=== PATIENT | female | born 1940 | race Caucasian/White ===

== ENCOUNTER → 2017-05-27 | Outpatient (CLI) | payer MEDICARE, OTHER | END | disposition home or self-care (01) | LOC: CFH 08:25 | PROVIDERS: ATTEND Family Medicine | DX: G93.9 Disorder of brain, unspecified (principal) | CPT/HCPCS: 70551 ==

== ENCOUNTER → 2017-06-19 | Outpatient (CLI) | payer MEDICARE, OTHER ==
[~2017-06-19] MED LIST: GADOBUTROL 7.5 MMOL/7.5 ML PFS ONE
== END | disposition home or self-care (01) ==
LOC: RAD 13:47
PROVIDERS: ATTEND Family Medicine
DX: G93.9 Disorder of brain, unspecified (principal); G62.9 Polyneuropathy, unspecified
CPT/HCPCS: 70552; A9585